=== PATIENT | male | born 1945 | race Caucasian/White ===

== ENCOUNTER → 2019-01-27 | Outpatient (CLI) | payer MEDICARE ==
[2019-01-27 15:50] LABS: HCT 39.9 % (39.0-53.0); HGB 13.4 gm/dL (13.0-17.5); MCH 31.6 pg (25.0-35.0); MCHC 33.4 g/dL (31.0-37.0); MCV 94.3 fL (80.0-100.0); Mean Platelet Volume 7.2; Platelet Count 266 k/uL (150-450); RBC 4.23 m/uL (4.30-5.90); RDW 13.4 % (11.5-15.5)
[2019-01-27 15:58] LABS: Potassium 4.6 mmol/L (3.5-5.1)
== END | disposition home or self-care (01) ==
LOC: LABPAT 14:18
PROVIDERS: ATTEND Internal Medicine Cardiovascular Disease
DX: Z01.812 Encounter for preprocedural laboratory examination (principal); I20.0 Unstable angina
CPT/HCPCS: 36415; 80051; 82565; 84520; 85027

== ENCOUNTER → 2019-01-29 | Day surgery (SDC) | payer MEDICARE ==
[2019-01-28 10:18] VITALS: BMI 40.0
[~2019-01-29] MED LIST: ACETAMINOPHEN TAB 325 MG TAB PO PRN; ALPRAZolam 0.25 MG TAB PO PRN; ALPRAZolam 0.5 MG TAB PO PRN; ASPIRIN 325 MG TAB PO STA; ATORVASTATIN 80 MG TAB PO STA; IOPAMIDOL-370 125ML BTL INJ ONE; LIDOCAINE 1% INJ 10MG/ML (20 ML MDV) ONE; LIDOCAINE 1% INJ 10MG/ML (20 ML MDV) SQ ONE; MIDAZOLAM (PF) 2 MG/2 ML VIAL IV ONE; NITROGLYCERIN SL TABS 0.4 MG TAB SUBLINGUAL PRN; RX INFO: IV CONTRAST WAS GIVEN 1 EACH MISC MISCELLANE PRN; SODIUM CHLORIDE 0.9% 1,000 ML IV ONE; SODIUM CHLORIDE 0.9% 1,000 ML IV SCH; SODIUM CHLORIDE 0.9% 1,000 ML in EMPTY BAG 1 BAG IV ONE; fentaNYL (PF) 50 MCG/ML 2 ML AMP ONE
[2019-01-29 07:18] LABS: Glucose,Whole Blood 135 mg/dL (75-99)
[2019-01-29 07:23] VITALS: RESP 18; TEMP 98.4
--- NOTE | 2019-01-29 09:25 | CC ---
CARDIAC CATHETERIZATION REPORT INDICATION: Unstable angina. This is a 73-year-old gentleman with history of coronary artery disease, status post prior angioplasty, who presented to me with episodes of progressively worsening precordial chest pain. He describes it as a pressure related to exertion and was associated with episodes of diaphoresis. Patient was advised to undergo cardiac catheterization for definitive diagnosis. He had been explained of risks, benefits and alternatives, understood and accepted. Patient has renal insufficiency with a creatinine of 1.28 and was brought in early to hydrate him. Patient understands the risk of contrast-induced nephropathy. PROCEDURE NOTE: After obtaining informed consent, left heart catheterization and coronary angiogram were performed via the right femoral artery using standard Ana catheters. Patient tolerated the procedure well without any obvious immediate complications. A femoral angiogram was performed and decision was made for Angio-Seal. Patient received moderate conscious sedation. Total sedation time was 20 minutes. FINDINGS: HEMODYNAMICS: Left ventricular end-diastolic pressure was 14 mm. There is no significant gradient across the aortic valve. LEFT VENTRICULOGRAM: Left ventriculogram is not performed. ANGIOGRAPHIC DATA: LEFT MAIN CORONARY ARTERY: Left main coronary artery is a normal-sized vessel and is free of stenosis. Divides into left anterior descending coronary artery and circumflex coronary artery. LAD was previously stented in its midportion. The diagonal was also stented. There is a mild to moderate atherosclerotic plaque proximal to the area of stenting within the LAD and also in the atherosclerotic plaque in mid LAD, past the stent. CIRCUMFLEX CORONARY ARTERY: Is a large dominant vessel and as it gives off a large caliber OM branch, there is an atherosclerotic plaque that involves the circumflex coronary artery. At its worst it seems to be a 40%-50% stenosis. RIGHT CORONARY ARTERY: Is a small nondominant vessel and is free of significant disease. CONCLUSION: Mild to moderate atherosclerotic plaque in the proximal LAD. proximal to the stent and 50% stenosis involving circumflex coronary artery at the artery that involves the circumflex coronary artery just before and after the origin of the OM branch. This lesion appears unchanged compared to a cardiac catheterization done in 2016. We noted the same lesion as was the lesion within the LAD. PLAN: I reviewed angiographic data with the patient and advised him to continue with medical therapy at this time. Patient had a stress test not too long ago and that did not reveal any ischemia. MMODL / IJN: [id number] /
[2019-01-29 14:20] VITALS: BP 112/69; PULSE 73
== END ==
LOC: CATHCVL 06:33
PROVIDERS: ATTEND Internal Medicine Cardiovascular Disease
DX: I25.110 Atherosclerotic heart disease of native coronary artery with unstable angina pectoris (principal); I10 Essential (primary) hypertension; E78.2 Mixed hyperlipidemia; N28.9 Disorder of kidney and ureter, unspecified; Z95.5 Presence of coronary angioplasty implant and graft; Z82.49 Family history of ischemic heart disease and other diseases of the circulatory system; Z79.82 Long term (current) use of aspirin; Z79.899 Other long term (current) drug therapy; Z79.4 Long term (current) use of insulin
CPT/HCPCS: 93458; C1760; C1894; C1769; J2001; Q9967; J2250